=== PATIENT | female | born 1990 | race African-American/Black ===

== ENCOUNTER 2017-09-24 15:11 | Outpatient (CLI) | payer OTHER | END 2017-09-24 16:30 | disposition home or self-care (01) | LOC: OBT 15:11 → L-D 15:12 → OBT 16:30 | DX: O40.3XX0 Polyhydramnios, third trimester, not applicable or unspecified (principal); Z3A.37 37 weeks gestation of pregnancy | CPT/HCPCS: 76818 ==

== ENCOUNTER 2017-10-07 16:11 | Outpatient (CLI) | payer OTHER | END 2017-10-07 19:20 | disposition home or self-care (01) | LOC: OBT 16:11 → L-D 16:12 → OBT 19:20 | DX: O40.3XX0 Polyhydramnios, third trimester, not applicable or unspecified (principal); O36.8130 Decreased fetal movements, third trimester, not applicable or unspecified; Z3A.39 39 weeks gestation of pregnancy | CPT/HCPCS: 76818 ==

== ENCOUNTER 2017-10-10 10:43 | Outpatient (CLI) | payer OTHER | END 2017-10-10 13:46 | disposition home or self-care (01) | LOC: OBT 10:43 → L-D 10:43 → OBT 13:46 | DX: O40.3XX0 Polyhydramnios, third trimester, not applicable or unspecified (principal); Z3A.39 39 weeks gestation of pregnancy | CPT/HCPCS: 76815; 76818 ==

== ENCOUNTER 2017-10-12 17:55 | Outpatient (CLI) | payer OTHER | END 2017-10-12 21:42 | disposition home or self-care (01) | LOC: OBT 17:55 → L-D 17:55 → OBT 21:42 | DX: O40.3XX0 Polyhydramnios, third trimester, not applicable or unspecified (principal); Z3A.40 40 weeks gestation of pregnancy | CPT/HCPCS: 76818 ==

== ENCOUNTER 2017-10-14 12:20 | Inpatient (IN) | payer OTHER ==
[2017-10-14] MEDS ORDERED: METHYLERGONOVINE 0.2 MG INJ IM (14:00)
[2017-10-14] MEDS ORDERED: MISOPROSTOL 200 MCG TAB PR (14:00)
[2017-10-14] MEDS ORDERED: IBUPROFEN 600 MG TAB PO (14:00)
[2017-10-14] MEDS ORDERED: CARBOPROST 250 MCG INJ IM (14:00)
[2017-10-14] MEDS ORDERED: BUTORPHANOL 2 MG INJ IV (14:00)
[2017-10-14] MEDS ORDERED: LIDOCAINE 1% (MPF) 30 ML INJ INJ (14:00)
[2017-10-14] MEDS ORDERED: OXYTOCIN 30 UNITS/LR 500 ML IV ×3 (14:00)
[2017-10-14] MEDS: LACTATED RINGER'S 1,000 ML IV* ×2 (14:19→18:16)
[2017-10-14 14:28] LABS: ADD MAN DIFF? NO
[2017-10-14 14:31] LABS: ABNORMAL IP MESSAGE 1; BASOPHILS % 0.2 % (0.0-2.0); EOSINOPHILS # 0.1 10^3/ul (0.0-0.5); EOSINOPHILS % 0.7 % (0.0-7.0); HEMATOCRIT 30.5 % (37.0-47.0); HEMOGLOBIN 9.6 g/dl (12.0-16.0); LYMPHOCYTES # 1.7 10^3/ul (0.8-2.9); LYMPHOCYTES % 15.4 % (15.0-51.0); MEAN CORPUSCULAR HEMOGLOBIN 22.7 pg (29.0-33.0); MEAN CORPUSCULAR HGB CONC 31.5 g/dl (32.0-37.0); MEAN CORPUSCULAR VOLUME 72.3 fl (82.0-101.0); MEAN PLATELET VOLUME 9.9 fl (7.4-10.4); MONOCYTE # 0.9 10^3/ul (0.3-0.9); MONOCYTES % 8.4 % (0.0-11.0); NEUTROPHIL # 7.9 10^3/ul (1.6-7.5); PLATELET COUNT 265 10^3/UL (140-415); RED BLOOD COUNT 4.22 10^6/ul (4.20-5.40); RED CELL DISTRIBUTION WIDTH 15.5 % (11.5-14.5)
[2017-10-14 14:31] LABS: WHITE BLOOD COUNT 11.2 10^3/ul (4.8-10.8)
[2017-10-14 14:37] LABS: POSITIVE DIFF @See below
[2017-10-14 14:51] LABS: INR 0.93; PARTIAL THROMBOPLASTIN TIME 28.1 Sec (25.0-35.0); PROTIME 12.6 Sec (11.9-14.9)
[2017-10-14] MEDS: DINOPROSTONE 10 MG VAG SUPP VAG (15:04)
[2017-10-14 16:07] LABS: RAPID PLASMA REAGIN NONREACTIVE (NR)
[2017-10-14 17:13] LABS: HEPATITIS B SURFACE ANTIGEN NEGATIVE (NEGATIVE)
[2017-10-14 19:07] LABS: ALANINE AMINOTRANSFERASE 25 IU/L (13-69); ALBUMIN 3.6 g/dl (3.3-4.9); ALKALINE PHOSPHATASE 172 IU/L (42-121); ANION GAP 16 (8-16); ASPARTATE AMINO TRANSFERASE 43 IU/L (15-46); BILIRUBIN,INDIRECT 0.2 mg/dl (0-1.1); BILIRUBIN,TOTAL 0.2 mg/dl (0.2-1.3); BLOOD UREA NITROGEN 6 mg/dl (7-20); CALCIUM 9.3 mg/dl (8.4-10.2); CARBON DIOXIDE 23 mmol/L (21-31); CHLORIDE 103 mmol/L (97-110); GLUCOSE 91 mg/dl (70-220); POTASSIUM 4.1 mmol/L (3.5-5.1); SODIUM 138 mmol/L (135-144); TOTAL PROTEIN 6.6 g/dl (6.1-8.1); URIC ACID 4.9 mg/dl (3.1-7.9)
[2017-10-14 19:37] LABS: ADD UMIC NO; UR ASCORBIC ACID NEGATIVE (NEGATIVE); UR BILIRUBIN (Dip) NEGATIVE (NEGATIVE); UR BLOOD (Dip) NEGATIVE (NEGATIVE); UR CLARITY CLEAR (CLEAR); UR COLOR YELLOW (YELLOW); UR GLUCOSE (Dip) NEGATIVE (NEGATIVE); UR KETONES (Dip) NEGATIVE (NEGATIVE); UR LEUKOCYTE ESTERASE (Dip) NEGATIVE Leu/ul (NEGATIVE); UR NITRITE (Dip) NEGATIVE (NEGATIVE); UR SPECIFIC GRAVITY (Dip) 1.015 (1.003-1.030); UR TOTAL PROTEIN (Dip) NEGATIVE (NEGATIVE); UR UROBILINOGEN (Dip) NEGATIVE (NEGATIVE)
[2017-10-15] MEDS: LACTATED RINGER'S 1,000 ML IV* ×3 (02:02→18:10)
[2017-10-15] MEDS: DINOPROSTONE 10 MG VAG SUPP VAG ×2 (06:24→21:19)
[2017-10-15] MEDS: MISOPROSTOL 25 MCG CAPSULE PO (21:38)
[2017-10-16] MEDS: LACTATED RINGER'S 1,000 ML IV* ×4 (00:37→22:47)
[2017-10-16] MEDS: MISOPROSTOL 25 MCG CAPSULE PO ×3 (03:02→10:53)
[2017-10-16] MEDS ORDERED: OXYTOCIN 30 UNITS/LR 500 ML IV (15:00)
[2017-10-16] MEDS: OXYTOCIN 30 UNITS/LR 500 ML IV (20:51)
[2017-10-16] MEDS ORDERED: FENTAnyl 2MCG/ML-ROPIV 0.2% 100 ML (23:47)
[2017-10-17] MEDS ORDERED: NALOXONE (0.4 MG/ML) INJ IV (00:30)
[2017-10-17] MEDS: LACTATED RINGER'S 1,000 ML IV* ×4 (01:52→22:00)
[2017-10-17] MEDS: FENTAnyl 2MCG/ML-ROPIV 0.2% 100 ML BAG EPI ×3 (06:05→18:28)
[2017-10-17] MEDS: AMPICILLIN 2 GM/NS (PMX) 100 ML IV (06:08)
[2017-10-17] MEDS ORDERED: LIDOCAINE 1.5%/EPI MPF (SDV) 30 ML VIAL (07:00)
[2017-10-17] MEDS ORDERED: ONDANSETRON 4 MG INJ (07:00)
[2017-10-17] MEDS: AMPICILLIN 1 GM/NS (PMX) 50 ML IV ×3 (10:04→18:24)
[2017-10-17 14:31] LABS: ADD UMIC YES; UR ASCORBIC ACID NEGATIVE (NEGATIVE); UR BACTERIA FEW /HPF (NONE SEEN); UR BILIRUBIN (Dip) NEGATIVE (NEGATIVE); UR BLOOD (Dip) 2+ mg/dL (NEGATIVE); UR CLARITY CLEAR (CLEAR); UR COLOR YELLOW (YELLOW); UR GLUCOSE (Dip) NEGATIVE (NEGATIVE); UR KETONES (Dip) 2+ mg/dL (NEGATIVE); UR LEUKOCYTE ESTERASE (Dip) 1+ Leu/ul (NEGATIVE); UR NITRITE (Dip) NEGATIVE (NEGATIVE); UR RBC 153 /HPF (0-5); UR SPECIFIC GRAVITY (Dip) 1.008 (1.003-1.030); UR SQUAMOUS EPITHELIAL CELL FEW /HPF (FEW); UR TOTAL PROTEIN (Dip) NEGATIVE (NEGATIVE); UR UROBILINOGEN (Dip) 1+ mg/dL (NEGATIVE); UR WBC 56 /HPF (0-5)
[2017-10-17 15:08] LABS: ADD MAN DIFF? NO
[2017-10-17 15:11] LABS: WHITE BLOOD COUNT 12.8 10^3/ul (4.8-10.8)
[2017-10-17 15:11] LABS: BASOPHILS % 0.2 % (0.0-2.0); EOSINOPHILS % 0.3 % (0.0-7.0); HEMOGLOBIN 9.4 g/dl (12.0-16.0); LYMPHOCYTES # 1.4 10^3/ul (0.8-2.9); LYMPHOCYTES % 10.9 % (15.0-51.0); MEAN CORPUSCULAR HEMOGLOBIN 22.8 pg (29.0-33.0); MEAN CORPUSCULAR HGB CONC 31.3 g/dl (32.0-37.0); MEAN CORPUSCULAR VOLUME 72.6 fl (82.0-101.0); MEAN PLATELET VOLUME 10.4 fl (7.4-10.4); MONOCYTES % 7.7 % (0.0-11.0); NEUTROPHIL # 10.2 10^3/ul (1.6-7.5); NEUTROPHILS % 79.8 % (39.0-77.0); PLATELET COUNT 229 10^3/UL (140-415); RED BLOOD COUNT 4.13 10^6/ul (4.20-5.40); RED CELL DISTRIBUTION WIDTH 15.6 % (11.5-14.5)
[2017-10-17 15:30] LABS: INR 0.95; PROTIME 12.8 Sec (11.9-14.9)
[2017-10-17 15:31] LABS: PARTIAL THROMBOPLASTIN TIME 28.1 Sec (25.0-35.0)
[2017-10-17 15:32] LABS: ALANINE AMINOTRANSFERASE 27 IU/L (13-69); ALBUMIN/GLOBULIN RATIO 0.96; ALKALINE PHOSPHATASE 170 IU/L (42-121); ANION GAP 12 (8-16); ASPARTATE AMINO TRANSFERASE 19 IU/L (15-46); BILIRUBIN,INDIRECT 0.9 mg/dl (0-1.1); BILIRUBIN,TOTAL 0.9 mg/dl (0.2-1.3); BLOOD UREA NITROGEN 3 mg/dl (7-20); CARBON DIOXIDE 21 mmol/L (21-31); CHLORIDE 110 mmol/L (97-110); CREATININE 0.63 mg/dl (0.44-1.00); GLUCOSE 63 mg/dl (70-220); POTASSIUM 3.5 mmol/L (3.5-5.1); SODIUM 139 mmol/L (135-144); TOTAL PROTEIN 6.1 g/dl (6.1-8.1); URIC ACID 5.4 mg/dl (3.1-7.9)
[2017-10-17] MEDS ORDERED: CEFAZOLIN 2 GM/50 ML (PMX) 50 ML IV (19:00)
[2017-10-17] MEDS ORDERED: LIDOCAINE 2% (SDV) 5 ML INJ (22:46)
[2017-10-17] MEDS ORDERED: FENTAnyl 50 MCG/ML VIAL (22:47)
[2017-10-17] MEDS ORDERED: SODIUM BICARBONATE (IV ADD) 50 ML (22:47)
[2017-10-17] MEDS ORDERED: OXYTOCIN 30 UNITS/LR 500 ML IV (22:59)
[2017-10-17] MEDS ORDERED: DEXAMETHASONE 4 MG/ML 1 ML INJ (23:15)
[2017-10-17] MEDS ORDERED: morphine SULFATE/PF (10 MG/10 ML) INJ (23:16)
[2017-10-18] MEDS ORDERED: ZOLPIDEM 5 MG TAB PO
[2017-10-18] MEDS ORDERED: NALOXONE (0.4 MG/ML) INJ IV
[2017-10-18] MEDS ORDERED: HYDROmorphONE 0.5 MG/0.5 ML SYG IV
[2017-10-18] MEDS ORDERED: DIPHENHYDRAMINE 50 MG INJ IV
[2017-10-18] MEDS: LACTATED RINGER'S 1,000 ML IV ×3 (00:05→16:05)
[2017-10-18] MEDS: OXYTOCIN 30 UNITS/LR 500 ML IV ×2 (00:10→04:18)
[2017-10-18] MEDS: KETOROLAC 30 MG INJ IV ×2 (00:22→20:05)
[2017-10-18] MEDS ORDERED: METHYLERGONOVINE 0.2 MG INJ IM (00:30)
[2017-10-18] MEDS ORDERED: MISOPROSTOL 200 MCG TAB PR (00:30)
[2017-10-18] MEDS ORDERED: OXYTOCIN 30 UNITS/LR 500 ML IV (00:30)
[2017-10-18] MEDS ORDERED: CARBOPROST 250 MCG INJ IM (00:30)
[2017-10-18] MEDS: ONDANSETRON 4 MG INJ IV (01:34)
[2017-10-18] MEDS: HYDROmorphONE 0.5 MG/0.5 ML SYG IV (01:45)
[2017-10-18 09:42] LABS: HEMATOCRIT 26.9 % (37.0-47.0); HEMOGLOBIN 8.3 g/dl (12.0-16.0); MEAN CORPUSCULAR HEMOGLOBIN 22.8 pg (29.0-33.0); MEAN CORPUSCULAR HGB CONC 30.9 g/dl (32.0-37.0); MEAN CORPUSCULAR VOLUME 73.9 fl (82.0-101.0); MEAN PLATELET VOLUME 10.7 fl (7.4-10.4); PLATELET COUNT 259 10^3/UL (140-415); RED BLOOD COUNT 3.64 10^6/ul (4.20-5.40); RED CELL DISTRIBUTION WIDTH 15.3 % (11.5-14.5)
[2017-10-18 09:45] LABS: ADD MAN DIFF? YES; POSITIVE DIFF @See below
[2017-10-18 10:37] LABS: ANISOCYTOSIS 1+ (0-0); BAND NEUTROPHILS #M 2.9 10^3/ul (0.0-0.6); BAND NEUTROPHILS % (M) 13 % (0-4); LYMPHOCYTES #M 1.8 10^3/ul (0.8-2.9); LYMPHOCYTES % (M) 8 % (15-51); MICROCYTOSIS 1+ (0-0); MONOCYTE #M 0.6 10^3/ul (0.3-0.9); MONOCYTES % (M) 3 % (0-11); PLATELET ESTIMATE NORMAL; SEG NEUT #M 18.1 10^3/ul (1.6-7.5); SEGMENTED NEUTROPHILS (M) % 76 % (39-77); SMUDGE%M 5 % (0-0)
[2017-10-18] MEDS: LANOLIN 7 GM TUBE TOP (17:41)
[2017-10-18 19:52] LABS: ADD MAN DIFF? NO
[2017-10-18 19:59] LABS: WHITE BLOOD COUNT 17.9 10^3/ul (4.8-10.8)
[2017-10-18 19:59] LABS: BASOPHILS % 0.2 % (0.0-2.0); EOSINOPHILS % 0.1 % (0.0-7.0); HEMATOCRIT 22.4 % (37.0-47.0); HEMOGLOBIN 7.1 g/dl (12.0-16.0); LYMPHOCYTES # 1.9 10^3/ul (0.8-2.9); LYMPHOCYTES % 10.5 % (15.0-51.0); MEAN CORPUSCULAR HEMOGLOBIN 23.4 pg (29.0-33.0); MEAN CORPUSCULAR HGB CONC 31.7 g/dl (32.0-37.0); MEAN CORPUSCULAR VOLUME 73.7 fl (82.0-101.0); MEAN PLATELET VOLUME 10.3 fl (7.4-10.4); MONOCYTE # 1.2 10^3/ul (0.3-0.9); MONOCYTES % 6.9 % (0.0-11.0); NEUTROPHIL # 14.4 10^3/ul (1.6-7.5); NEUTROPHILS % 80.6 % (39.0-77.0); PLATELET COUNT 219 10^3/UL (140-415); RED BLOOD COUNT 3.04 10^6/ul (4.20-5.40); RED CELL DISTRIBUTION WIDTH 15.5 % (11.5-14.5)
[2017-10-19] MEDS: LACTATED RINGER'S 1,000 ML IV ×3 (00:05→19:30)
[2017-10-19] MEDS: DIPHENHYDRAMINE 25 MG CAP PO (00:40)
[2017-10-19] MEDS: IBUPROFEN 800 MG TAB PO ×3 (05:24→21:52)
[2017-10-19] MEDS: FERROUS GLUCONATE (EC) 325 MG TAB PO ×2 (09:33→21:52)
[2017-10-19] MEDS: OXYCODONE/ACETAMINOPHEN (5/325) TAB PO (12:01)
[2017-10-20] MEDS: IBUPROFEN 800 MG TAB PO ×2 (05:43→13:34)
[2017-10-20] MEDS: FERROUS GLUCONATE (EC) 325 MG TAB PO (09:44)
[2017-10-20] MEDS: OXYCODONE/ACETAMINOPHEN (5/325) TAB PO (09:49)
[2017-10-21] MEDS ORDERED: DIPHTH/TET/ACEL PERTUSS (ADULT) 0.5 ML VIAL IM* (09:00)
== END 2017-10-20 18:36 | disposition home or self-care (01) | DRG 766 ==
LOC: OBT 12:20 → PP1 10-18 03:48 → L-D 12:22 → OBT 13:22 → L-D 13:20
PROVIDERS: Obstetrics & Gynecology
PROC: 10D00Z1 Extraction of Products of Conception, Low, Open Approach (ICD-10-PCS; principal; 2017-10-17)
DX: O48.0 Post-term pregnancy (principal); Z3A.40 40 weeks gestation of pregnancy; O61.0 Failed medical induction of labor; Z37.0 Single live birth
CPT/HCPCS: 62319; 76818; 80053; 81001; 81003; 84560; 85025; 85384; 85610; 85730; 86592; 86900; 86901; 87340; 99464

== ENCOUNTER 2017-10-21 19:07 | Observation (INO) | payer OTHER ==
[2017-10-21] MEDS: KETOROLAC 30 MG INJ IV (20:15)
[2017-10-21] MEDS: ONDANSETRON 4 MG INJ IV (20:15)
[2017-10-21] MEDS: SOD CHLORIDE 0.9% 1,000 ML IV (20:15)
[2017-10-21 20:18] LABS: ABNORMAL IP MESSAGE 1; HEMATOCRIT 20.7 % (37.0-47.0); MEAN CORPUSCULAR HEMOGLOBIN 22.9 pg (29.0-33.0); MEAN CORPUSCULAR HGB CONC 30.9 g/dl (32.0-37.0); MEAN CORPUSCULAR VOLUME 73.9 fl (82.0-101.0); MEAN PLATELET VOLUME 9.9 fl (7.4-10.4); NUCLEATED RED BLOOD CELLS% 0.2 /100WBC (0.0-0.0); PLATELET COUNT 258 10^3/UL (140-415)
[2017-10-21 20:30] LABS: ADD MAN DIFF? YES; HEMOGLOBIN 6.4 g/dl (12.0-16.0); POSITIVE DIFF @See below
[2017-10-21 20:37] LABS: ALANINE AMINOTRANSFERASE 19 IU/L (13-69); ALBUMIN 3.2 g/dl (3.3-4.9); ALBUMIN/GLOBULIN RATIO 1.14; ALKALINE PHOSPHATASE 115 IU/L (42-121); ANION GAP 13 (8-16); ASPARTATE AMINO TRANSFERASE 24 IU/L (15-46); BILIRUBIN,INDIRECT 0.4 mg/dl (0-1.1); BILIRUBIN,TOTAL 0.4 mg/dl (0.2-1.3); BLOOD UREA NITROGEN 9 mg/dl (7-20); CALCIUM 8.5 mg/dl (8.4-10.2); CARBON DIOXIDE 26 mmol/L (21-31); CHLORIDE 104 mmol/L (97-110); CREATININE 0.73 mg/dl (0.44-1.00); GLUCOSE 81 mg/dl (70-220); LIPASE 106 U/L (23-300); POTASSIUM 3.9 mmol/L (3.5-5.1); SODIUM 139 mmol/L (135-144)
[2017-10-21 21:11] LABS: ANISOCYTOSIS 1+ (0-0); BAND NEUTROPHILS #M 0.1 10^3/ul (0.0-0.6); BAND NEUTROPHILS % (M) 2 % (0-4); ERYTHROBLAST% (NRBC) (M) 1 % (0-0); LYMPHOCYTES #M 2.2 10^3/ul (0.8-2.9); LYMPHOCYTES % (M) 25 % (15-51); MICROCYTOSIS 2+ (0-0); MONOCYTE #M 0.4 10^3/ul (0.3-0.9); MONOCYTES % (M) 5 % (0-11); PLATELET ESTIMATE NORMAL; SEG NEUT #M 6.1 10^3/ul (1.6-7.5); SEGMENTED NEUTROPHILS (M) % 68 % (39-77); SMUDGE%M 18 % (0-0)
[2017-10-21] MEDS: SOD CHLORIDE 0.9% 250 ML IV (21:42)
[2017-10-21 21:43] LABS: HEMATOCRIT 20.3 % (37.0-47.0)
[2017-10-21 21:52] LABS: HEMOGLOBIN 6.2 g/dl (12.0-16.0)
[2017-10-21] MEDS: MAGNESIUM CITRATE 300 ML BTL PO (23:42)
[2017-10-22 02:03] LABS: IMMEDIATE SPIN CROSSMATCH 1 2
[2017-10-22] MEDS: IBUPROFEN 600 MG TAB PO ×5 (08:53→17:26)
[2017-10-22] MEDS: FERROUS SULFATE (EC) 325 MG TAB PO (08:54)
[2017-10-22] MEDS: DOCUSATE SODIUM 100 MG CAP PO (08:54)
[2017-10-22 11:37] LABS: ABNORMAL IP MESSAGE 1; HEMATOCRIT 23.6 % (37.0-47.0); HEMOGLOBIN 7.4 g/dl (12.0-16.0); MEAN CORPUSCULAR HEMOGLOBIN 23.6 pg (29.0-33.0); MEAN CORPUSCULAR HGB CONC 31.4 g/dl (32.0-37.0); MEAN CORPUSCULAR VOLUME 75.2 fl (82.0-101.0); MEAN PLATELET VOLUME 10.2 fl (7.4-10.4); NUCLEATED RED BLOOD CELLS% 0.4 /100WBC (0.0-0.0); PLATELET COUNT 268 10^3/UL (140-415); RED BLOOD COUNT 3.14 10^6/ul (4.20-5.40); RED CELL DISTRIBUTION WIDTH 15.8 % (11.5-14.5)
[2017-10-22 11:37] LABS: WHITE BLOOD COUNT 9.3 10^3/ul (4.8-10.8)
[2017-10-22 11:52] LABS: ADD MAN DIFF? YES; POSITIVE DIFF @See below
[2017-10-22 12:23] LABS: ANISOCYTOSIS 1+ (0-0); BASOPHIL #M 0.1 10^3/ul (0.0-0.0); BASOPHILS % (M) 2 % (0-2); BURR CELLS 1+ (0-0); EOSINOPHILS % (M) 2 % (0-7); GIANT THROMBO% (M) 2 % (0-0); LYMPHOCYTES #M 3.2 10^3/ul (0.8-2.9); LYMPHOCYTES % (M) 35 % (15-51); MONOCYTE #M 0.3 10^3/ul (0.3-0.9); MONOCYTES % (M) 4 % (0-11); MYELOCYTES % (M) 1 % (0-0); PLATELET ESTIMATE NORMAL; POIKILOCYTOSIS 1+ (0-0); POLYCHROMASIA 1+ (0-0); SEGMENTED NEUTROPHILS (M) % 56 % (39-77); SMUDGE%M 12 % (0-0)
[2017-10-22] MEDS ORDERED: MAGNESIUM SULFATE (GM) 50% 2 ML INJ IVPB (16:55)
[2017-10-22] MEDS ORDERED: MAGNESIUM SULFATE 4 GM in DEXTROSE 5% 100 ML IV (17:00)
[2017-10-22] MEDS: hydrALAzine 20 MG INJ IV ×2 (17:09→21:01)
[2017-10-22 17:16] LABS: ALANINE AMINOTRANSFERASE 33 IU/L (13-69); ALBUMIN 2.9 g/dl (3.3-4.9); ALKALINE PHOSPHATASE 131 IU/L (42-121); ASPARTATE AMINO TRANSFERASE 28 IU/L (15-46); BILIRUBIN,INDIRECT 0.5 mg/dl (0-1.1); BILIRUBIN,TOTAL 0.5 mg/dl (0.2-1.3); TOTAL PROTEIN 5.9 g/dl (6.1-8.1)
[2017-10-22 17:57] LABS: ADD MAN DIFF? NO
[2017-10-22 17:59] LABS: WHITE BLOOD COUNT 8.5 10^3/ul (4.8-10.8)
[2017-10-22 17:59] LABS: ABNORMAL IP MESSAGE 1; BASOPHILS % 0.5 % (0.0-2.0); EOSINOPHILS # 0.2 10^3/ul (0.0-0.5); HEMATOCRIT 24.7 % (37.0-47.0); HEMOGLOBIN 7.7 g/dl (12.0-16.0); LYMPHOCYTES # 1.8 10^3/ul (0.8-2.9); LYMPHOCYTES % 20.8 % (15.0-51.0); MEAN CORPUSCULAR HEMOGLOBIN 23.6 pg (29.0-33.0); MEAN CORPUSCULAR HGB CONC 31.2 g/dl (32.0-37.0); MEAN CORPUSCULAR VOLUME 75.8 fl (82.0-101.0); MEAN PLATELET VOLUME 10.2 fl (7.4-10.4); MONOCYTE # 0.6 10^3/ul (0.3-0.9); MONOCYTES % 6.6 % (0.0-11.0); NEUTROPHIL # 5.5 10^3/ul (1.6-7.5); NEUTROPHILS % 64.3 % (39.0-77.0); NUCLEATED RED BLOOD CELLS # 0.1 10^3/ul (0.0-0.0); NUCLEATED RED BLOOD CELLS% 0.6 /100WBC (0.0-0.0); PLATELET COUNT 274 10^3/UL (140-415); RED BLOOD COUNT 3.26 10^6/ul (4.20-5.40); RED CELL DISTRIBUTION WIDTH 15.7 % (11.5-14.5)
[2017-10-22 18:00] LABS: POSITIVE DIFF @See below
[2017-10-22 18:03] LABS: ADD UMIC YES; UR ASCORBIC ACID NEGATIVE (NEGATIVE); UR BILIRUBIN (Dip) NEGATIVE (NEGATIVE); UR BLOOD (Dip) 2+ mg/dL (NEGATIVE); UR CLARITY CLEAR (CLEAR); UR COLOR COLORLESS (YELLOW); UR GLUCOSE (Dip) NEGATIVE (NEGATIVE); UR KETONES (Dip) NEGATIVE (NEGATIVE); UR LEUKOCYTE ESTERASE (Dip) NEGATIVE Leu/ul (NEGATIVE); UR NITRITE (Dip) NEGATIVE (NEGATIVE); UR RBC 1 /HPF (0-5); UR SPECIFIC GRAVITY (Dip) 1.003 (1.003-1.030); UR TOTAL PROTEIN (Dip) NEGATIVE (NEGATIVE); UR UROBILINOGEN (Dip) NEGATIVE (NEGATIVE); UR WBC 1 /HPF (0-5)
[2017-10-22 18:19] LABS: ANION GAP 13 (8-16); BLOOD UREA NITROGEN 12 mg/dl (7-20); CALCIUM 8.6 mg/dl (8.4-10.2); CARBON DIOXIDE 22 mmol/L (21-31); CHLORIDE 110 mmol/L (97-110); CREATININE 0.72 mg/dl (0.44-1.00); GLUCOSE 75 mg/dl (70-220); POTASSIUM 4.4 mmol/L (3.5-5.1); SODIUM 141 mmol/L (135-144)
[2017-10-22 18:19] LABS: MAGNESIUM 1.9 mg/dl (1.7-2.5)
[2017-10-22] MEDS ORDERED: MAG SULFATE 2GM IN 50 ML IVPB (18:30)
[2017-10-22] MEDS: LACTATED RINGER'S 1,000 ML IV (20:03)
[2017-10-22] MEDS: MAGNESIUM SULFATE 4 GM/100 ML 100 ML IV (20:19)
[2017-10-22] MEDS: MAGNESIUM SULFATE 20 GM/500 ML 500 ML IV (20:50)
[2017-10-23 01:28] LABS: MAGNESIUM 4.1 mg/dl (1.7-2.5)
[2017-10-23] MEDS: IBUPROFEN 600 MG TAB PO ×5 (06:09→23:55)
[2017-10-23] MEDS: MAGNESIUM SULFATE 20 GM/500 ML 500 ML IV (07:08)
[2017-10-23 07:14] LABS: WHITE BLOOD COUNT 10.5 10^3/ul (4.8-10.8)
[2017-10-23 07:14] LABS: ABNORMAL IP MESSAGE 1; HEMATOCRIT 24.6 % (37.0-47.0); HEMOGLOBIN 7.8 g/dl (12.0-16.0); MEAN CORPUSCULAR HEMOGLOBIN 23.4 pg (29.0-33.0); MEAN CORPUSCULAR HGB CONC 31.7 g/dl (32.0-37.0); MEAN CORPUSCULAR VOLUME 73.7 fl (82.0-101.0); MEAN PLATELET VOLUME 10.1 fl (7.4-10.4); NUCLEATED RED BLOOD CELLS% 0.3 /100WBC (0.0-0.0); PLATELET COUNT 314 10^3/UL (140-415); RED BLOOD COUNT 3.34 10^6/ul (4.20-5.40); RED CELL DISTRIBUTION WIDTH 15.4 % (11.5-14.5)
[2017-10-23 07:19] LABS: POSITIVE DIFF @See below
[2017-10-23 07:20] LABS: ADD MAN DIFF? YES
[2017-10-23 07:40] LABS: MAGNESIUM 4.8 mg/dl (1.7-2.5)
[2017-10-23 07:43] LABS: ANION GAP 12 (8-16); BLOOD UREA NITROGEN 7 mg/dl (7-20); CALCIUM 7.8 mg/dl (8.4-10.2); CARBON DIOXIDE 23 mmol/L (21-31); CHLORIDE 109 mmol/L (97-110); CREATININE 0.67 mg/dl (0.44-1.00); GLUCOSE 86 mg/dl (70-220); PHOSPHORUS 4.2 mg/dl (2.5-4.9); POTASSIUM 3.8 mmol/L (3.5-5.1); SODIUM 140 mmol/L (135-144)
[2017-10-23] MEDS: LACTATED RINGER'S 1,000 ML IV (08:13)
[2017-10-23] MEDS: FERROUS SULFATE (EC) 325 MG TAB PO (08:13)
[2017-10-23] MEDS: DOCUSATE SODIUM 100 MG CAP PO ×2 (08:14→20:40)
[2017-10-23 08:52] LABS: ANISOCYTOSIS 1+ (0-0); BAND NEUTROPHILS #M 0.4 10^3/ul (0.0-0.6); BAND NEUTROPHILS % (M) 4 % (0-4); BURR CELLS 1+ (0-0); GIANT THROMBO% (M) 1 % (0-0); LYMPHOCYTES % (M) 10 % (15-51); METAMYELOCYTES #M 0.2 10^3/ul (0.0-0.0); METAMYELOCYTES %M 2 % (0-0); MICROCYTOSIS 1+ (0-0); MONOCYTE #M 0.2 10^3/ul (0.3-0.9); MONOCYTES % (M) 2 % (0-11); MYELOCYTES #M 0.1 10^3/ul (0.0-0.0); MYELOCYTES % (M) 1 % (0-0); PLATELET ESTIMATE NORMAL; POIKILOCYTOSIS 1+ (0-0); POLYCHROMASIA 1+ (0-0); SEG NEUT #M 8.5 10^3/ul (1.6-7.5); SEGMENTED NEUTROPHILS (M) % 81 % (39-77); SMUDGE%M 4 % (0-0)
[2017-10-23 13:11] LABS: MAGNESIUM 5.4 mg/dl (1.7-2.5)
[2017-10-24] MEDS: LABETALOL HCL 20MG INJ IV ×2 (00:14→00:44)
[2017-10-24] MEDS ORDERED: LABETALOL HCL 20MG INJ IV (01:44)
[2017-10-24] MEDS: LABETALOL 100 MG TAB PO ×3 (03:54→20:57)
[2017-10-24] MEDS: IBUPROFEN 600 MG TAB PO ×4 (06:00→23:52)
[2017-10-24] MEDS: AMLODIPINE 10 MG TAB PO (06:28)
[2017-10-24 06:38] LABS: ADD MAN DIFF? NO
[2017-10-24 06:40] LABS: WHITE BLOOD COUNT 9.7 10^3/ul (4.8-10.8)
[2017-10-24 06:40] LABS: BASOPHILS % 0.3 % (0.0-2.0); EOSINOPHILS # 0.1 10^3/ul (0.0-0.5); HEMATOCRIT 22.9 % (37.0-47.0); HEMOGLOBIN 7.2 g/dl (12.0-16.0); LYMPHOCYTES # 1.8 10^3/ul (0.8-2.9); LYMPHOCYTES % 18.2 % (15.0-51.0); MEAN CORPUSCULAR HEMOGLOBIN 23.3 pg (29.0-33.0); MEAN CORPUSCULAR HGB CONC 31.4 g/dl (32.0-37.0); MEAN CORPUSCULAR VOLUME 74.1 fl (82.0-101.0); MEAN PLATELET VOLUME 10.5 fl (7.4-10.4); MONOCYTE # 0.8 10^3/ul (0.3-0.9); MONOCYTES % 8.1 % (0.0-11.0); NEUTROPHIL # 6.8 10^3/ul (1.6-7.5); NEUTROPHILS % 70.3 % (39.0-77.0); PLATELET COUNT 294 10^3/UL (140-415); RED BLOOD COUNT 3.09 10^6/ul (4.20-5.40); RED CELL DISTRIBUTION WIDTH 15.8 % (11.5-14.5)
[2017-10-24 07:30] LABS: ALANINE AMINOTRANSFERASE 46 IU/L (13-69); ALBUMIN 2.9 g/dl (3.3-4.9); ALBUMIN/GLOBULIN RATIO 1.03; ALKALINE PHOSPHATASE 121 IU/L (42-121); ANION GAP 13 (8-16); ASPARTATE AMINO TRANSFERASE 32 IU/L (15-46); BILIRUBIN,INDIRECT 0.4 mg/dl (0-1.1); BILIRUBIN,TOTAL 0.4 mg/dl (0.2-1.3); BLOOD UREA NITROGEN 9 mg/dl (7-20); CALCIUM 7.9 mg/dl (8.4-10.2); CARBON DIOXIDE 24 mmol/L (21-31); CHLORIDE 108 mmol/L (97-110); CREATININE 0.74 mg/dl (0.44-1.00); GLUCOSE 83 mg/dl (70-220); POTASSIUM 4.1 mmol/L (3.5-5.1); SODIUM 141 mmol/L (135-144); TOTAL PROTEIN 5.7 g/dl (6.1-8.1)
[2017-10-24] MEDS: FERROUS SULFATE (EC) 325 MG TAB PO (08:36)
[2017-10-24] MEDS: DOCUSATE SODIUM 100 MG CAP PO (08:36)
[2017-10-25] MEDS: IBUPROFEN 600 MG TAB PO ×3 (06:11→18:22)
[2017-10-25] MEDS: FERROUS SULFATE (EC) 325 MG TAB PO (09:26)
[2017-10-25] MEDS: DOCUSATE SODIUM 100 MG CAP PO (09:27)
[2017-10-25] MEDS: AMLODIPINE 10 MG TAB PO (09:27)
[2017-10-25] MEDS: LABETALOL 100 MG TAB PO ×2 (09:28→21:01)
[2017-10-25] MEDS: NIFEdipine (XL) 30 MG TAB PO (12:15)
[2017-10-26] MEDS: IBUPROFEN 600 MG TAB PO ×3 (06:00→12:51)
[2017-10-26] MEDS: DOCUSATE SODIUM 100 MG CAP PO (09:10)
[2017-10-26] MEDS: FERROUS SULFATE (EC) 325 MG TAB PO (09:11)
[2017-10-26] MEDS: AMLODIPINE 10 MG TAB PO (09:11)
[2017-10-26] MEDS: LABETALOL 100 MG TAB PO (09:11)
[2017-10-26] MEDS: NIFEdipine (XL) 30 MG TAB PO (09:12)
[2017-10-26 12:28] LABS: ADD MAN DIFF? NO
[2017-10-26 12:31] LABS: WHITE BLOOD COUNT 10.3 10^3/ul (4.8-10.8)
[2017-10-26 12:31] LABS: BASOPHIL # 0.1 10^3/ul (0.0-0.1); BASOPHILS % 0.5 % (0.0-2.0); EOSINOPHILS # 0.2 10^3/ul (0.0-0.5); EOSINOPHILS % 2.1 % (0.0-7.0); HEMATOCRIT 31.3 % (37.0-47.0); HEMOGLOBIN 9.7 g/dl (12.0-16.0); LYMPHOCYTES # 1.6 10^3/ul (0.8-2.9); LYMPHOCYTES % 15.5 % (15.0-51.0); MEAN CORPUSCULAR HEMOGLOBIN 22.9 pg (29.0-33.0); MEAN CORPUSCULAR VOLUME 73.8 fl (82.0-101.0); MEAN PLATELET VOLUME 9.9 fl (7.4-10.4); MONOCYTE # 0.6 10^3/ul (0.3-0.9); MONOCYTES % 5.9 % (0.0-11.0); NEUTROPHIL # 7.6 10^3/ul (1.6-7.5); NEUTROPHILS % 73.9 % (39.0-77.0); PLATELET COUNT 511 10^3/UL (140-415); RED BLOOD COUNT 4.24 10^6/ul (4.20-5.40); RED CELL DISTRIBUTION WIDTH 16.4 % (11.5-14.5)
[2017-10-27] MEDS ORDERED: NIFEdipine (XL) 60 MG TAB PO (09:00)
== END 2017-10-26 15:27 | disposition home or self-care (01) ==
LOC: E/R 19:07 → MS1 23:07 → PP1 10-22 19:00
DX: O90.81 Anemia of the puerperium (principal); D64.9 Anemia, unspecified; O13.5 Gestational [pregnancy-induced] hypertension without significant proteinuria, complicating the puerperium
CPT/HCPCS: 36415; 36430; 74019; 80048; 80053; 80076; 81001; 83690; 83735; 84100; 85014; 85018; 85025; 86850; 86900; 86901; 86920; 93970; 96374; 96375; 99217; 99285-25